=== PATIENT | male | born 1990 | race Caucasian/White ===

== ENCOUNTER 2018-02-22 17:46 | Emergency (ER) | payer MEDICAID, OTHER ==
[2018-02-22] MEDS: HYDROCODONE/APAP (5/325) TAB PO (19:05)
[2018-02-22] MEDS: LIDOCAINE 1% (MDV) 10 ML INJ INJ (19:08)
[2018-02-22] MEDS: STERILE WATER 1L IRRIG BTL IRR (19:09)
[2018-02-22] MEDS: LIDOCAINE 1% (MDV) 20 ML INJ INJ (19:09)
== END 2018-02-22 20:35 | disposition home or self-care (01) ==
LOC: FTE 17:46
DX: S61.212A Laceration without foreign body of right middle finger without damage to nail, initial encounter (principal); W31.82XA Contact with other commercial machinery, initial encounter; Y92.89 Other specified places as the place of occurrence of the external cause
CPT/HCPCS: 12002; 73130-RT; 99284-25